=== PATIENT | female | born 1975 | race Caucasian/White ===

== ENCOUNTER 2018-11-11 12:49 | Emergency (ER) | payer MEDICAID, OTHER ==
[~2018-11-11] VITALS: Ht 157.5 cm; Wt 82.0 kg
[~2018-11-11 12:49] MED LIST: BUTA1CAP39 PO
[2018-11-11 12:52] VITALS: Ht 157.5 cm; Wt 82.0 kg
[2018-11-11] MEDS ORDERED: SOD CHLORIDE 0.9% 1,000 ML IV STA (13:15)
[2018-11-11] MEDS ORDERED: morphine 2 MG INJ IV STA (13:15)
[2018-11-11] MEDS ORDERED: ONDANSETRON 4 MG INJ IV STA (13:15)
--- NOTE | 2018-11-11 13:55 | ERD ---
ER Documentation Chief Complaint Chief Complaint ap x 3 days, no nausea, no vomiting, HPI This is a 43-year-old female presents to ED with complaints of right lower quadrant abdominal pain that started 3 days ago. Patient describes the pain as a pushing sensation and states that it comes and goes. at Pains worst she rates it at a 9 out of 10 pain. Patient states that the pain is becoming more frequently. Last menstrual period was 11-02-2017. Patient admits to some off-and-on constipation. Denies fevers, chills, nausea, vomiting, diarrhea, melena, hematochezia, dysuria, hematuria, vaginal pain, vaginal discharge and all other symptoms. No known drug allergies. History of gallbladder removal. ROS All systems reviewed and are negative except as per history of present illness. Medications Home Meds Active Scripts Aoijduxsgmlju-Izougzabkd-Fhajaabp-Codeine* (Fioricet w/ Codeine*) [id number] Capsule, 1 CAP PO Q6H PRN for PAIN LEVEL 1-5, #20 CAP Prov:KAUR SARAVIA PLANER FEEDER 11/13/15 Reported Medications [none] Unknown Strength No Conflict Check 11/13/15 Allergies Allergies: Coded Allergies: No Known Allergy (Verified , 08/26/13) Uncoded Allergies: nka (Allergy, Mild, 01/14/10) PMhx/Soc History of Surgery: Yes (PREVIOUS GALL BLADDER SX, ) Anesthesia Reaction: No Hx Neurological Disorder: No Hx Respiratory Disorders: No Hx Cardiac Disorders: No Hx Psychiatric Problems: No Hx Miscellaneous Medical Probl: No Hx Alcohol Use: No Hx Substance Use: No Hx Tobacco Use: No Smoking Status: Never smoker FmHx Family History: No diabetes Physical Exam Vitals Vital Signs Date Temp Pulse Resp B/P (MAP) Pulse Ox O2 O2 Flow FiO2 Time Delivery Rate 11/11/18 98.2 81 18 134/74 99 12:52 (94) Physical Exam Physical Exam Vitals signs: Reviewed by me. General: Well developed, well nourished, in no acute distress. Patient is awake and alert. Head: Normocephalic, atraumatic. Eyes: Normal conjunctiva, Pupils PERRLA, EOM intact grossly ENT: Pharynx is clear, Moist mucous membranes, external ears, nose and mouth n ormal Neck: Supple, no masses, lymphadenopathy or JVD Respiratory: Clear to auscultation bilaterally with no wheezing, rhonchi, rales, no distress Cardiovascular: RRR, no murmurs, rubs, or gallops Abdominal: Obese, soft, no peritoneal signs, no rigidity, no surgical abdomen, bowel sounds present all 4 quadrants, mild tenderness palpation in right lower quadrant, nontender to light & deep palpation in all other areas, : Deferred MSK: No edema, no unilateral swelling, 5/5 strength Back: No midline tenderness. No flank tenderness Neurologic: Alert and oriented, moving all extremities, normal speech, no focal weakness, no cerebellar signs. Normal mentation Skin: warm and dry, No rash Psych: Normal mood Result Diagram: 11/11/18 1324 11/11/18 1324 Results 24 hrs Laboratory Tests Test 11/11/18 13:24 11/11/18 13:30 White Blood Count 10.8 10^3/ul Red Blood Count 5.18 10^6/ul Hemoglobin 12.0 g/dl Hematocrit 39.4 % Mean Corpuscular Volume 76.1 fl Mean Corpuscular Hemoglobin 23.2 pg Mean Corpuscular Hemoglobin Concent 30.5 g/dl Red Cell Distribution Width 16.7 % Platelet Count 380 10^3/UL Mean Platelet Volume 9.4 fl Immature Granulocytes % 0.400 % Neutrophils % 67.3 % Lymphocytes % 25.4 % Monocytes % 5.4 % Eosinophils % 1.0 % Basophils % 0.5 % Nucleated Red Blood Cells % 0.0 /100WBC Immature Granulocytes # 0.040 10^3/ul Neutrophils # 7.3 10^3/ul Lymphocytes # 2.7 10^3/ul Monocytes # 0.6 10^3/ul Eosinophils # 0.1 10^3/ul Basophils # 0.1 10^3/ul Nucleated Red Blood Cells # 0.0 10^3/ul Urine Color YELLOW Urine Clarity CLOUDY Urine pH 5.0 Urine Specific [place] 1.025 Urine Ketones NEGATIVE mg/dL Urine Nitrite NEGATIVE mg/dL Urine Bilirubin NEGATIVE mg/dL Urine Urobilinogen NEGATIVE mg/dL Urine Leukocyte Esterase NEGATIVE Babar/ul Urine Microscopic RBC 3 /HPF Urine Microscopic WBC 1 /HPF Urine Squamous Epithelial Cells MODERATE /HPF Urine Bacteria FEW /HPF Urine Mucus FEW /HPF Urine Hemoglobin NEGATIVE mg/dL Urine Glucose NEGATIVE mg/dL Urine Total Protein NEGATIVE mg/dl Sodium Level 145 mmol/L Potassium Level 4.2 mmol/L Chloride Level 108 mmol/L Carbon Dioxide Level 30 mmol/L Anion Gap 7 Blood Urea Nitrogen 12 mg/dl Creatinine 0.70 mg/dl Est Glomerular Filtrat Rate mL/min > 60 mL/min Glucose Level 87 mg/dl Calcium Level 9.4 mg/dl Total Bilirubin 0.5 mg/dl Direct Bilirubin 0.00 mg/dl Indirect Bilirubin 0.5 mg/dl Aspartate Amino Transf (AST/SGOT) 26 IU/L Alanine Aminotransferase (ALT/SGPT) 26 IU/L Alkaline Phosphatase 80 IU/L Total Protein 7.8 g/dl Albumin 4.2 g/dl Globulin 3.60 g/dl Albumin/Globulin Ratio 1.16 Lipase 101 U/L POC Beta HCG, Qualitative NEGATIVE Current Medications Medications Dose Sig/Isabel Start Time Status Last (Trade) Ordered Route PRN Stop Time Admin Dose Reason Admin Sodium 1,000 ml @ Q1H STAT 11/11/18 DC 11/11/18 Chloride 1,000 mls/hr IV 13:15 14:16 11/11/18 14:14 Morphine 4 mg ONCE STAT 11/11/18 DC 11/11/18 Sulfate IV 13:15 14:17 (morphine) 11/11/18 13:18 Ondansetron 4 mg ONCE STAT 11/11/18 DC 11/11/18 HCl (Zofran IV 13:15 14:17 Inj) 11/11/18 13:18 Procedures/MDM EKG, MONITORS, & DIAGNOSTIC IMAGING: [place] [address] Radiology Main Line: [phone] DIAGNOSTIC IMAGING REPORT Patient: KD RANGEL : 1975 Age: 43 Sex: F MR #: [id number] DOS: 11/11/18 1315 Ordering MD: SEAN ROLDAN PA-C Location: [facility] Room/Bed: PROCEDURE: US Pelvis. CLINICAL INDICATION: pelvic pain TECHNIQUE: Multiple sonographic images of the pelvis were obtained utilizing transabdominal and endovaginal technique. The images were reviewed on a PACS workstation. COMPARISON: None. FINDINGS: The uterus is normal in size with a normal appearance of the myometrium. The uterus measures 8.7 x 3.9 x 4.5 cm. The endometrial stripe is homogeneous in appearance and has the thickness of 16 mm. There is normal Doppler flow in the right ovary. The right ovary measures 4.5 x 2.0 x 1.6 cm. The left ovary was not seen. No free fluid is present within the pelvis. RPTAT: AA IMPRESSION: Mildly thickened endometrium. Left ovary not visualized. .Patrick Boone MD, MD Date Time Electronically viewed and signed by .Patrick Boone MD, MD on 11/11/2018 14:27 .S/ CC: SEAN ROLDAN PA-C [id number] [place] [address] Radiology Main Line: [phone] DIAGNOSTIC IMAGING REPORT Patient: KD RANGEL : 1975 Age: 43 Sex: F MR #: [id number] DOS: 11/11/18 1315 Ordering MD: SEAN ROLDAN PA-C Location: [facility] Room/Bed: PROCEDURE: CT abdomen and pelvis without contrast. CLINICAL INDICATION: Abdominal pain. TECHNIQUE: CT scan of the abdomen and pelvis without contrast was performed on a multi-slice CT scanner . Sagittal and coronal reformatted images were obtained from the axial source images. One or more of the following dose reduction techniques were used: - Automated exposure control. - Adjustment of the mA and/or kV according to patient size. - Use of iterative reconstruction technique. DICOM images are available DLP 1364.86 mGycm. CTDIvol 23.33 mGy COMPARISON: None FINDINGS: Fine detail of the soft tissues is limited secondary to the lack of IV contrast. Evaluation for enhancing lesions cannot be performed. Lower thorax:The lung bases are clear. Liver: There is fatty infiltration of the liver with no gross focal lesion. Biliary: The gallbladder is removed. No biliary dilatation. Pancreas: Homogeneous density of the pancreas without visible focal lesion or cystic abnormality. There is no pancreatic ductal dilatation. Spleen: Unremarkable without enlargement or focal lesion. Adrenal Glands: The adrenal glands are within normal limits without mass. Urinary: The kidneys are symmetric in size bilaterally. There are no visible renal or ureteral stones. There is no hydronephrosis. Gastrointestinal: No evidence of bowel obstruction or inflammation. There is no appendicitis. There is a single diverticulum within the mid descending colon without diverticulitis. Lymph nodes: There are no enlarged lymph nodes. Vascular: The aorta is unremarkable. Peritoneum/mesentery: No free fluid or free air. Reproductive organs: The uterus and adnexal structures are grossly within normal limits. Musculoskeletal: Degenerative changes are seen in the lumbar spine with no acute osseous abnormality Other: None IMPRESSION: No evidence of bowel obstruction or inflammation. There is no appendicitis. There is diverticulosis without diverticulitis. Fatty liver. No renal or ureteral calculi with no evidence of hydronephrosis. RPTAT: AA .Joaquim Wolfe MD, MD Date Time Electronically viewed and signed by .Joaquim Wolfe MD, MD on 11/11/2018 14:41 .J/ CC: SEAN ROLDAN PA-C [phone] LAB INTERPRETATION: Interpretation text CBC shows no evidence of hemorrhage or infection Chemistry shows no evidence of significant electrolyte abnormalities or renal insufficiency Liver function test shows no evidence of acute biliary or hepatic dysfunction Lipase shows no evidence of acute pancreatitis Urinalysis shows 1 WBC, 3 RBCs, no leukocyte esterase no nitrite, urine negative ER COURSE: The patient was given IV normal saline, Zofran, morphine The medication was well tolerated and the patient reports improvement in symptoms. The patient was stable throughout ED course. I kept the patient and/or family informed of laboratory and diagnostic imaging results throughout the emergency room course. The patient was promptly evaluated and a treatment plan was devised based on H&P and other data. This plan was discussed with the patient who agreed and had no further questions or concerns prior to discharge. MEDICAL DECISION MAKING: This is a 43-year-old female presents ED with right lower quadrant abdominal pain that is been off and on for the past 3 days. Non- woman presenting with abdominal pain. test is negative. Considered causes of female- specific abdominal pain including pelvic inflammatory disease, tubo-ovarian abscess, Qhst-Rhmp-Jorwrc, and ovarian torsion. Also considered causes of abdominal pain that are not gender-specific (e.g., appendicitis, volvulus, small bowel obstruction, mesenteric adenitis, acute cholecystitis/choledocholithiasis and other biliary pathology, etc.). Patient well-appearing with normal vital signs. No peritoneal signs and abdomen benign on multiple repeat examinations. Pt well hydrated. Laboratory testing and imaging here reviewed and normal. Patient given strict return precautions for worsening pain, inability to eat/drink, fevers (temperature over 100.4F), or other concerns. Prior to dischar ge all questions answered. She agrees with treatment plan and understands strict return precautions. Follow-up for repeat abdominal exam within 12 hours. DISPOSITION PLAN: We discussed follow up with the patient's primary care doctor within 24 to 48 hours. Patient counseled regarding my diagnostic impression and care plan. Prior to discharge all questions answered. Pt agrees with treatment plan and understands strict return precautions. Precautionary instructions provided including instructions to return to the ER if not improving or for any worsening or changing symptoms or concerns. SPECIALIST FOLLOW UP RECOMMENDED: None Patient has been advised to follow up with primary care in 1-2 days. Disclaimer: Inadvertent spelling and grammatical errors are likely due to EHR/dictation software use and do not reflect on the overall quality of patient care. Also, please note that the electronic time recorded on this note does not necessarily reflect the actual time of the patient encounter. Departure Diagnosis: Primary Impression: Abdominal pain Abdominal location: right lower quadrant Qualified Codes: R10.31 - Right lower quadrant pain Condition: Stable Patient Instructions: Abdominal Pain Referrals: [facility] Additional Instructions: Patient advised to return to the ED immediately for new or worsening symptoms. Patient advised to follow up with primary care provider in the next 24-48 hours. Patient verbalized understanding and agrees with treatment plan and course of action. If patient has no primary care they may follow up with one of the community clinics listed on the following page or one of the options listed below [facility] + [address] [address] or [facility] [address] [place] [address] or [facility] [address] [place] [address] SEAN ROLDAN PA-C Nov 11, 2018 13:55
[2018-11-11] MEDS ORDERED: IBUP-1542 PO (14:49)
[2018-11-11 15:32] VITALS: BP 135/82; PULSE 80; RESP 18
== END 2018-11-11 15:34 | disposition home or self-care (01) ==
LOC: FTE 12:49
DX: R10.31 Right lower quadrant pain (principal); R10.2 Pelvic and perineal pain
CPT/HCPCS: 36415; 74176; 76830; 76856; 80053; 81001; 81025; 83690; 85025; 96361; 96374; 96375; J2270; J2405; J7030; Z7502